=== PATIENT | female | born 1985 | race Caucasian/White ===

== ENCOUNTER 2019-01-12 11:06 | Emergency (ER) | payer SELFPAY ==
[2019-01-12 11:23] VITALS: BP 125/71; PULSE 67; RESP 16; TEMP 35.9; O2SAT 99; BMI 25.0
--- NOTE | 2019-01-12 11:39 | DI.US.S_ITS ---
PROCEDURE: US PERIPH VENOUS LOW EXTREM RT INDICATIONS: PAIN, SWELLING TECHNIQUE: Real-time imaging, as well as color and pulse Doppler interrogation, were performed of the lower extremity deep veins from the inguinal ligament to the popliteal fossa. COMPARISON: None. FINDINGS: The common femoral, femoral and popliteal veins are normally compressible, and free of intraluminal thrombus. Color and pulse Doppler demonstrate normal phasic intraluminal flow. There is normal augmentation response to distal compression maneuver. IMPRESSION: No deep venous thrombosis. Dictated by: Chiquita Salazar M.D. on 01/12/2019 at 12:20 Approved by: Chiquita Salazar M.D. on 01/12/2019 at 12:20
--- NOTE | 2019-01-12 12:23 | ED.LOWEXIN ---
HPI - Extremity Injury (Lower) <BENITO Baldwin - Last Filed: 01/12/19 14:23> General Chief Complaint: Extremity Injury, Lower Stated Complaint: swollen r leg Time Seen by Provider: 01/12/19 11:30 Source: patient and family Mode of arrival: Ambulatory Limitations: no limitations History of Present Illness HPI Narrative: The patient is a 33-year-old female current smoker with history of GERD who presents with a chief complaint of a painful and swollen right lower leg. She states it started yesterday and she had redness on the back of her leg, she took Benadryl and went away. She denies any immobility, recent surgeries. She does not take hormones but admits to smoking every day. She denies any fevers nausea vomiting diarrhea chest pain or shortness of breath. She denies any history of blood clots. She is concerned about a blood clot. She states that she took ibuprofen which helped a little bit, but did not take with pain. Related Data Home Medications Medication Instructions Recorded Confirmed omeprazole 40 mg PO DAILY 01/12/19 01/12/19 Allergies Allergy/AdvReac Type Severity Reaction Status Date / Time Penicillins Allergy Unknown Verified 01/12/19 11:56 Review of Systems <BENITO Baldwin - Last Filed: 01/12/19 14:23> Review of Systems Narrative: GENERAL: Denies chills, fatigue, malaise, fever, sweats. HEENT: Denies sinus pain, ear pain, sore throat, difficulty swallowing, dizziness. RESPIRATORY: Denies dyspnea, cough, wheezing, hemoptysis, sputum. CARDIOVASCULAR: Denies chest pain, palpitations, orthopnea, edema, GASTROINTESTINAL: Denies nausea, vomiting, abdominal pain, diarrhea, constipation, melena. : Denies dysuria, frequency, incontinence, hematuria, urinary retention. MUSCULOSKELETAL: See HPI SKIN: See HPI NEUROLOGIC: Denies weakness, headache, numbness, change in speech, confusion, seizures, incoordination. PSYCHIATRIC: No concerning psychosocial issues. 12 point review of systems is negative except for those stated above Patient History <BENITO Baldwin - Last Filed: 01/12/19 14:23> Social History Smoking Status: Current every day smoker Substance Use Type: marijuana Exam <BENITO Baldwin - Last Filed: 01/12/19 14:23> Narrative Exam Narrative: GENERAL: This is a well-nourished, well-developed patient, in no acute distress HEAD: Atraumatic. Normocephalic. No temporal or scalp tenderness. EYES: Pupils equal round and reactive. Extraocular motions intact. No scleral icterus. No injection or drainage. ENT: Nose without bleeding, purulent drainage or septal hematoma. Throat without erythema, tonsillar hypertrophy or exudate. Uvula midline. Airway patent. NECK: Trachea midline. No JVD or lymphadenopathy. Supple, nontender, no meningeal signs. CARDIOVASCULAR: Regular rate and rhythm RESPIRATORY: Coarse bilaterally to auscultation. Breath sounds equal bilaterally. No wheezes, rales, or rhonchi. Occasional cough noted on exam GASTROINTESTINAL: Abdomen soft, non-tender, nondistended. No hepato-splenomegaly, or palpable masses. No guarding. EXTREMITIES: General pain to palpation right lower leg. Positive Homans sign right lower leg. Able to flex and extend right foot. Positive pedal pulses right foot. BACK: Nontender without deformity or crepitance. No flank tenderness. NEURO: AOx3. SKIN: No rash or erythema on visible skin. No erythema or rash on right lower leg. Initial Vital Signs Initial Vital Signs: Vital Signs Temperature 96.7 F L 01/12/19 11:23 Pulse Rate 67 01/12/19 11:23 Respiratory Rate 16 01/12/19 11:23 Blood Pressure 125/71 01/12/19 11:23 Pulse Oximetry 99 01/12/19 11:23 <Clifton Marcelo DO - Last Filed: 01/12/19 14:32> Initial Vital Signs Initial Vital Signs: Vital Signs Temperature 96.7 F L 01/12/19 11:23 Pulse Rate 67 01/12/19 11:23 Respiratory Rate 16 01/12/19 11:23 Blood Pressure 125/71 01/12/19 11:23 Pulse Oximetry 99 01/12/19 11:23 Course <BENITO Baldwin - Last Filed: 01/12/19 14:23> Orders Ordered: ED Orders 01/12/19 11:39 US periph venous low extrem rt Stat Vital Signs Vital signs: Vital Signs - 8 hr 01/12/19 11:23 01/12/19 13:01 Temperature 96.7 F L Pulse Rate 67 64 Respiratory Rate 16 16 Blood Pressure 125/71 Blood Pressure [Left Arm] 122/70 Pulse Oximetry 99 <Clifton Marcelo DO - Last Filed: 01/12/19 14:32> Orders Ordered: ED Orders 01/12/19 11:39 US periph venous low extrem rt Stat Vital Signs Vital signs: Vital Signs - 8 hr 01/12/19 11:23 01/12/19 13:01 Temperature 96.7 F L Pulse Rate 67 64 Respiratory Rate 16 16 Blood Pressure 125/71 Blood Pressure [Left Arm] 122/[address] [facility] - Extremity Injury (Lower) <BENITO Baldwin - Last Filed: 01/12/19 14:23> Imaging Data Venous US: Radiologist's impression: [address] [address] Ultrasound Report Signed Patient: Lety Daniel LMR#: [id number] : 1985Acct:[id number] Age/Sex: 33 / FDate of Service: 01/12/19 Loc: ED Accession Number: [id number] Procedure: US periph venous low extrem rt Ordering Provider: Caprice Bro PROCEDURE: US PERIPH VENOUS LOW EXTREM RT INDICATIONS: PAIN, SWELLING TECHNIQUE: Real-time imaging, as well as color and pulse Doppler interrogation, were performed of the lower extremity deep veins from the inguinal ligament to the popliteal fossa. COMPARISON: None. FINDINGS: The common femoral, femoral and popliteal veins are normally compressible, and free of intraluminal thrombus. Color and pulse Doppler demonstrate normal phasic intraluminal flow. There is normal augmentation response to distal compression maneuver. IMPRESSION: No deep venous thrombosis. Dictated by: Chiquita Salazar M.D. on 01/12/2019 at 12:20 Approved by: Chiquita Salazar M.D. on 01/12/2019 at 12:20 [facility] Narrative Medical decision making narrative: The patient is a 33-year-old female who presents with a chief complaint of pain and swelling of her right lower leg. She states she had a rash yesterday, but went away today. She does no recent immobility or surgeries. However she does smoke which is a risk factor for DVTs. Ultrasound was taken to evaluate for DVT, which came back negative. The patient is neurovascularly intact. I discussed at length a trial of conservative measures such as rest ice compression elevation as well as [id number]-[id number] pain medications as needed and able. Discussed the importance of following up with primary care provider gave her contact information for [facility] human resources trainer. Discussed coming back to the emergency department for any acute concerns such as chest pain, shortness of breath, concern of heart attack or stroke. Patient has no questions or concerns upon discharge and states understanding of return precautions as well as follow-up care. Discharge Plan Departure Patient Disposition: Home Clinical Impression: Lower extremity pain Qualifiers: Laterality: right Qualified Code(s): M79.604 - Pain in right leg Discharge Date/Time: 01/12/19 13:02 Instructions: How To Perform RICE (Rest, Ice, Compress, Elevate), DI for Leg Pain Activity Restrictions/Additional Instructions: Today your ultrasound showed no blood clot in your leg. Please use rest ice compression elevation as well as [id number] medications as needed and able for pain. I have given the contact information for the [facility] coordinator, who can help you find a primary care provider. Please come back to the emergency department for any acute concerns such as chest pain, shortness of breath, concern of heart attack or stroke or any other acute concerns. Prescriptions: No Action omeprazole 20 mg Tablet,Delayed Release (Dr/Ec) 40 mg PO DAILY RF: 0 Referrals: [facility] [Outside] Stand Alone Forms: School Release Note <Clifton Marcelo DO - Last Filed: 01/12/19 14:32> Sign Out Provider Sign Out Attestation: I was available for consultation during this patient's emergency department visit. This chart is signed by myself for administrative purposes only. I did not have direct contact with this patient during this visit. They were seen independently by the APC.
--- NOTE | 2019-01-12 12:37 | PC.NURSE ---
Pt reports 2 days ago had swelling and rash to posterior R calf resolved with benadryl. Ambulatory with pain. 2+ pulses. no redness or swelling noted at this time. no h/o DVT, no recent travel, no control use, and no recent trauma. appears well. NAD
[2019-01-12 13:01] VITALS: BP 122/70; PULSE 64; RESP 16
== END 2019-01-12 13:02 | disposition home or self-care (01) ==
PROVIDERS: Emergency Provider Nurse Practitioner Family; Family Provider Specialist
DX: M79.604 Pain in right leg (principal); R60.0 Localized edema
CPT/HCPCS: 93971; 99282; 99283

== ENCOUNTER 2023-05-20 15:02 | Emergency (ER) | payer OTHER, MEDICAID, SELFPAY ==
[2023-05-20 15:07] VITALS: BP 148/81; PULSE 65; RESP 18; TEMP 36.6; O2SAT 100; BMI 24.1
--- NOTE | 2023-05-20 15:33 | ED_ITS ---
HPI - Back Pain/Injury <Vlad Harris PA-C - Last Filed: 05/20/23 16:35> General Chief Complaint: Back Pain/Injury Stated Complaint: Spinal pain Time Seen by Provider: 05/20/23 15:14 Source: patient History of Present Illness HPI Narrative: 37-year-old female presents to the ED with 6 weeks of lower back pain. Patient states that 6 weeks ago she slipped, caught herself without falling, however started experiencing lower back pain since then. Patient was seen at [facility], x-rays ruled out fractures or dislocations. Patient was given Percocet and Flexeril. Patient states she has not been taking the Flexeril since it elevates her heart rate. Patient also has not been taking the Percocet. Patient has been taking ibuprofen sporadically. Patient has been seen by her PCP who has prescribed physical therapy, however patient has not yet been seen by the physical therapist. Patient denies fever, chills, urinary hesitancy, urinary incontinence, bowel incontinence. Patient endorses intermittent numbness in her feet but no tingling or weakness. Patient states that she has not in the ED for pain medications, however would like to know what is causing her pain. Related Data Home Medications Medication Instructions Recorded Confirmed omeprazole 20 mg tablet,delayed 40 mg PO DAILY 01/12/19 01/12/19 release Allergies Allergy/AdvReac Type Severity Reaction Status Date / Time Penicillins Allergy Unknown Verified 05/20/23 15:12 Review of Systems <Vlad Harris PA-C - Last Filed: 05/20/23 16:35> Constitutional Constitutional: Denies chills, Denies fatigue, Denies fever(s), Denies frequent falls, Denies lethargy and Denies weakness Eyes Eyes: Denies change in vision, Denies eye discharge, Denies irritation and Denies loss of vision ENT Ears, Nose, Mouth, and Throat: Denies change in voice, Denies dizziness, Denies neck pain, Denies sore throat and Denies throat swelling Cardiovascular Cardiovascular: Denies chest pain, Denies irregular heart rhythm, Denies lightheadedness, Denies palpitations, Denies dyspnea, Denies dyspnea on exertion and Denies orthopnea Respiratory Respiratory: Denies cough, Denies dyspnea, Denies dyspnea on exertion and Denies wheezing Gastrointestinal Gastrointestinal: Denies abdominal pain, Denies change in bowel habits, Denies diarrhea, Denies nausea and Denies vomiting Musculoskeletal Musculoskeletal: Reports back pain, Denies neck pain and Denies numbness Integumentary/Breasts Skin/Breast: Denies pruritus, Denies erythema, Denies rash and Denies wounds Neurologic Neurologic: Denies behavioral changes, Denies confusion, Denies dizziness, Denies frequent falls, Denies loss of vision, Denies numbness and Denies weakness Psychiatric Psychiatric: Denies anxiety, Denies behavioral changes, Denies confusion, Denies depression, Denies homicidal ideation and Denies suicidal ideation Endocrine Endocrine: Denies fatigue, Denies flushing and Denies palpitations Hematologic/Lymphatic Hematologic/Lymphatic: Denies easy bruising Allergic/Immunologic Allergic/Immunologic: Denies urticaria, Denies throat swelling and Denies wheezing Patient History <Vlad Harris PA-C - Last Filed: 05/20/23 16:35> Social History Smoking Status: Current every day smoker Smoking Status: Current every day smoker tobacco type: cigarettes alcohol intake frequency: 0-2 drinks per day Substance Use Type: marijuana Exam <Vlad Harris PA-C - Last Filed: 05/20/23 16:35> Narrative Exam Narrative: Const General:?cooperative, healthy appearing and comfortable [facility] Head:?normal to inspection Ears:?hearing grossly normal bilaterally Nose:?external nose normal Face and sinus:?normal facial exam and sinuses nontender Mouth:?oral mucosae normal Throat:?posterior oropharynx normal Eyes General:?appearance normal, both eyes and all related structures Neck Neck:?normal visual inspection and no lymphadenopathy noted Resp Effort & Inspection:?normal respiratory effort Auscultation:?clear to auscultation bilaterally Cardio Rate:?regular rate Rhythm:?regular rhythm Musculoskeletal No midline tenderness to palpation. There is some paraspinal tenderness to palpation. No bruising, rashes. There is full range of motion. Strength and sensation is intact. Patient is neurovascularly intact. Gait is normal. Neuro General:?patient alert, patient awake and patient oriented x3 Initial Vital Signs Initial Vital Signs: Vital Signs Temperature 97.9 F 05/20/23 15:07 Pulse Rate 65 05/20/23 15:07 Respiratory Rate 18 05/20/23 15:07 Blood Pressure 148/81 H 02/26/24 15:07 Pulse Oximetry 100 05/20/23 15:07 Oxygen Delivery Method Room Air 05/20/23 15:07 <Tami Montaño MD - Last Filed: 05/21/23 07:30> Initial Vital Signs Initial Vital Signs: Vital Signs Temperature 97.9 F 05/20/23 15:07 Pulse Rate 65 05/20/23 15:07 Respiratory Rate 18 05/20/23 15:07 Blood Pressure 148/81 H 05/20/23 15:07 Pulse Oximetry 100 05/20/23 15:07 Oxygen Delivery Method Room Air 05/20/23 15:07 Course <Vlad Harris PA-C - Last Filed: 05/20/23 16:35> Vital Signs Vital signs: Vital Signs - 8 hr 05/20/23 15:07 Temperature 97.9 F Pulse Rate 65 Respiratory Rate 18 Blood Pressure 148/81 H Pulse Oximetry 100 Oxygen Delivery Method Room Air <Tami Montaño MD - Last Filed: 05/21/23 07:30> Vital Signs Vital signs: Vital Signs - 8 hr 05/20/23 15:07 Temperature 97.9 F Pulse Rate 65 Respiratory Rate 18 Blood Pressure 148/81 H Pulse Oximetry 100 Oxygen Delivery Method Room Air MDM - Back Pain/Injury <Vlad Harris PA-C - Last Filed: 05/20/23 16:35> MDM Narrative Medical decision making narrative: 37-year-old female presents to the ED with 6 weeks of lower back pain. Physical exam is reassuring for no midline tenderness to palpation. There is some paraspinal tenderness to palpation. Patient appears neurovascularly intact. No red flag symptoms or concern for cauda equina. Patient's symptoms most consistent with a musculoskeletal sprain/strain versus disc etiology. Discussed findings with patient, recommend follow-up with primary care for further niesha luation. Recommend ibuprofen, Tylenol, lidocaine patches. ED return precautions discussed with patient. Patient verbalized understanding. Medical records reviewed: Yes Discharge Plan Departure Patient Disposition: Home Clinical Impression: Low back pain Qualifiers: Chronicity: acute Sciatica laterality: sciatica laterality unspecified Instructions: DI for Low Back Pain Activity Restrictions/Additional Instructions: You were evaluated in the ED today for lower back pain. Your symptoms are consistent with either a musculoskeletal sprain/strain versus a disc issue. Please follow-up with your PCP as soon as possible for further evaluation. You may take 800 mg of ibuprofen and 1000 mg of Tylenol every 8 hours for pain relief. Please take the medications with food. You may also apply lidocaine patches which are sold in drug stores under the brand name Salonpas. Return to the ED if you have worsening symptoms, numbness, tingling, weakness. Prescriptions: No Action omeprazole 20 mg Tablet,Delayed Release (Dr/Ec) 40 mg PO DAILY Stand Alone Forms: Patient Portal/API ED Sign-out <Tami Montaño MD - Last Filed: 05/21/23 07:30> Cosign ED Attending Cosignature Attestation: I was immediately available in the department for consultation throughout this patient's visit. Tami Montaño MD
== END 2023-05-20 15:47 | disposition home or self-care (01) ==
PROVIDERS: Emergency Provider Student in an Organized Health Care Education/Training Program; Family Provider Specialist
DX: M54.40 Lumbago with sciatica, unspecified side (principal)
CPT/HCPCS: 99281